=== PATIENT | female | born 1950 | race Asian ===

== ENCOUNTER 2024-10-15 18:51 | Inpatient (IN) | payer MEDICARE, MEDICAID, SELFPAY ==
[2024-10-15 18:54] VITALS: PULSE 128; RESP 18; O2SAT 94; BMI 24.0
[2024-10-15 18:57] VITALS: BP 134/77; PULSE 115; RESP 24; TEMP 37.7; O2SAT 93
--- NOTE | 2024-10-15 18:57 | EDNOTE_ITS ---
ED Weakness RME/HPI General Chief complaint: Flu Like Symptoms Stated complaint: WEAKNESS Time Seen by Provider: 10/15/24 19:17 Arrival date/time: 10/15/24 18:51 RME / HPI RME / HPI Narrative: This section includes all my notes and documentations, including HPI, PE, and ED course. Donnell Call MD HPI: 74yo female BIBA from home with several days of subjective fever, chills, aches, malaise, and fatigue. Just prior to arrival, EMS called due to diaphoresis and respiratory distress and possible decreased mental status. According to family present, no abdominal pain or vomiting. No other complaints. ROS: All negative except as documented in HPI. Physical Exam: General: Alert and oriented. Appearance of severe malaise noted. Hypoxia noted. Fever noted. Eyes: Conjunctivae and lids clear. PERRL. EOMI. ENT: No nasal congestion. Neck: Supple. No carotid bruit. No JVD. Heart: Sinus tachycardia noted. Lungs: No respiratory distress. Good air movement. No severe rhonchi, wheezing, rales. Abdomen: Soft and nontender. Normal bowel sounds. No distension. No rebound or guarding. Back: No CVA tenderness. Skin: Warm and clammy. Neuro: Alert. Cranial nerves II to XII grossly normal. No peripheral motor deficits. I reviewed EMS notes. I reviewed all diagnostic test results. My interpretation of the EKG is sinus tachycardia with nonspecific ST-T changes. My interpretation of the chest x-ray is NAD. My review of the bilateral lower extremity venous doppler US report is no DVT. My review of the CT head report is NAD. My review of the CT angio chest report is NAD. My review of the CT abdomen pelvis report is distended gallbladder. My review of the gallbladder US report is NAD. Blood tests remarkable for ESR 32, D-Dimer 2270, Creatinine 1.4, Glucose 362, CRP 15, Procalcitonin 16.17. UA remarkable for positive nitrites, positive leukocyte esterase, 4 RBCs, 46 WBCs, and rare bacteria. At this point, diagnoses include: Sepsis, UTI (urinary tract infection), OSVALDO (acute kidney injury), Hyperglycemia, CHF (congestive heart failure), Generalized weakness, Respiratory failure Treatment here included Oxygen, Toradol, Zofran, NS, Tylenol, Insulin, Rocephin, Protonix, and Pepcid. Some improvement noted. I discussed the case with our hospitalist. About the presentation and exam and diagnostics and treatments here. And need of further care in the hospital. Will accept the patient. Donnell Call MD Related Data Home Medications ?Medication ?Instructions ?Recorded ?Confirmed benzonatate 200 mg capsule 200 mg PO TID 03/05/23 1208/21 empagliflozin 25 mg tablet 25 mg PO DAILY 03/05/2308/21 (Jardiance) glipizide 10 mg tablet 10 mg PO ACBR 03/05/2303/05 sitagliptin phosphate 100 mg 100 mg PO QDAY 03/05/23 1 05/06/22 tablet (Januvia) verapamil 240 mg tablet,extended 240 mg PO QDAY 03/05/23 release Previous Rx's ?Medication ?Instructions ?Recorded aspirin 81 mg tablet,delayed 81 mg PO QDAY #60 tabs release atorvastatin 80 mg tablet 80 mg PO QDAY #60 tabs 03/07 clopidogrel 75 mg tablet 75 mg PO QDAY #60 tabs 03/07 Allergies Allergy/AdvReac Type Severity Reaction Status Date / Time No Known Allergies Allergy Verified 03/18/23 18:55 Review of Systems Review of Systems Systems Reviewed: All systems reviewed, normal except as documented Past Medical History Past Medical History CARDIAC: Positive Cardiac Disorders, Hypercholesterolemia, Congestive Heart Failure and Hypertension RESPIRATORY: Negative Chronic Obstructive Pulmonary Disease (COPD) GENITOURINARY: Positive Genitourinary Disorders; Negative Renal Disease ENDOCRINE: Positive Endocrine Disorders and Diabetes Mellitus Type 2; Negative Diabetes Mellitus Type 1 Social History SMOKING STATUS: Never smoker SUBSTANCE USE: does not use ED Exam Narrative Physical exam: As noted in HPI. Course Course Course Narrative: 1899: Sepsis alert initiated. Orders made at this time are congruent with ED Adult Sepsis Order List. Re-evaluation is to be completed. 1957: NS IVF started. 2214: Sepsis reassessment performed consisting of lab review, vitals, physical exam including auscultation of heart, lungs, and visual evaluation of capillary refills, mucosal membranes and extremities. Quality Measures Possible source: genitourinary Blood cultures ordered: yes Antibiotic ordered: Yes Pertinent labs: 10/15/24 19:40 Lactic Acid 1.9 mMol/L (0.4-2.0) Procalcitonin 16.17 H ng/ml (0.0-0.49) sepsis Orders Category Date Time Status Bedside COVID-19 Antigen Test NOW Care 10/15/24 18:58 Active Bedside Influenza A&B Antigen Test NOW Care 10/15/24 18:[address] Screening NOW Care 10/15/24 20:12 Active EKG (ED ONLY) *Do not use* NOW Care 10/15/24 18:58 Completed Miscellaneous Nursing Order NOW Care 10/15/24 18:58 Active Saline [Insert IV] NOW Care 10/15/24 18:[address] abdomen pelvis w con Stat Exams 10/15/24 20:[address] angio chest Stat Exams 10/15/24 20:[address] head/brain wo con Stat Exams 10/15/24 18:58 Completed EKG (ED Only) Stat Exams 10/15/24 18:58 Draft US gall bladder Stat Exams 10/16/24 00:05 Ordered US venous doppler LE BI Stat Exams 10/15/24 20:19 Completed XR chest 1V portable Stat Exams 10/15/24 18:59 Completed ABG [Arterial Blood Gas] Stat Lab 10/15/24 19:57 Completed Amylase Stat Lab 10/15/24 19:40 Completed BNP [B-Type Natriuretic Peptide] Stat Lab 10/15/24 19:40 Completed Beta Hydroxybutyrate Stat Lab 10/15/24 19:40 Completed Bilirubin,Direct Stat Lab 10/15/24 19:40 Completed Blood Culture (Lab) Stat Lab 10/15/24 19:42 Received CBC Stat Lab 10/15/24 19:40 Completed CMP [Comprehensive Metabolic Panel] Stat Lab 10/15/24 19:40 Completed CRP [C-Reactive Protein] Stat Lab 10/15/24 19:40 Completed D-Dimer Stat Lab 10/15/24 19:40 Completed ESR [Sed Rate (ESR)] Stat Lab 10/15/24 19:40 Completed Free T4 (Free Thyroxine) Stat Lab 10/15/24 19:40 Completed Hemoglobin A1C [Glycohemoglobin w (eAG)] Stat Lab 10/15/24 19:40 Completed Lactate (Lactic Acid) Stat Lab 10/15/24 19:40 Completed Lipase Stat Lab 10/15/24 19:40 Completed Magnesium Stat Lab 10/15/24 19:40 Completed PT [Prothrombin Time with INR] Stat Lab 10/15/24 19:40 Completed PTT [Partial Thromboplastin Time] Stat Lab 10/15/24 19:40 Completed Procalcitonin Stat Lab 10/15/24 19:40 Completed TSH [Thyroid Stimulating Hormone] Stat Lab 10/15/24 19:40 Completed Troponin I Stat Lab 10/15/24 19:40 Completed UA, C/S IF [Urinalysis, C/S if Indicated] Stat Lab 10/15/24 19:48 Completed Urine Culture Stat Lab 10/15/24 19:48 Received Acetaminophen Ivpb [Ofirmev Inj] Med 10/15/24 19:00 Discontinued 1,000 mg in 100 ml IV X1 Acetaminophen Tab [Tylenol Tab] Med 10/15/24 20:52 Discontinued 650 mg PO X1 ONE Famotidine Inj [Pepcid Inj] Med 10/15/24 22:53 Discontinued 20 mg IVP X1 ONE Insulin Regular Med 10/15/24 20:28 Discontinued 5 unit IV X1 ONE Ketorolac Inj [Toradol Inj] Med 10/15/24 19:00 Discontinued 12 mg IVP X1 ONE Ondansetron Inj [Zofran Inj] Med 10/15/24 18:59 Discontinued 4 mg IVP X1 ONE Pantoprazole Inj [Protonix Inj] Med 10/15/24 22:53 Discontinued 40 mg IVP X1 ONE Sodium Chloride 0.9% 1000 ml [Ns] 1,000 ml Med 10/15/24 18:59 Discontinued IV 999 mls/hr Sodium Chloride 0.9% 1000 ml [Ns] 1,000 ml Med 10/15/24 19:00 Discontinued IV 999 mls/hr cefTRIAXone/D5w 1gm IV premix [Rocephin/D5w 1gm IV Med 10/15/24 19:00 Discontinued premix] 1 gm in 50 ml IV X1 Vital Signs Vital signs: Vital Signs Temperature 99.8 F 10/15/24 18:57 Pulse Rate 115 H 10/15/24 18:57 Respiratory Rate 24 H 10/15/24 18:57 Blood Pressure 134/77 H 10/15/24 18:57 Pulse Oximetry (%) 93 L 10/15/24 18:57 Oxygen Delivery Method Room Air 10/15/24 18:57 Weakness MDM Narrative MDM Narrative:: 74yo female BIBA from home with several days of subjective fever, chills, aches, malaise, and fatigue. Just prior to arrival, EMS called due to diaphoresis and respiratory distress and possible decreased mental status. According to family present, no abdominal pain or vomiting. No other complaints. Patient data External records reviewed:: [facility] previous records (Per chart review, patient was admitted here on 03/05/23 for TIA.) and EMS form Clinical information provided by:: patient and EMS Social determinants that could affect healthcare access:: none Patient has the following chronic illnesses:: CVA, DM, HTN How is presenting disease/condition affected by chronic disease/condition?: uneffected by Evaluation data The following diagnostics were reviewed and interpreted by me:: lab results, radiology exam(s) and EKG tracing(s) (My interpretation of the EKG is: Sinus rhythm (100 bpm) with nonspecific ST-T changes. Donnell Call MD) Lab and/or radiology exams considered but not ordered:: none Interpretation Summary: I reviewed all diagnostic test results. My interpretation of the EKG is sinus tachycardia with nonspecific ST-T changes. My interpretation of the chest x-ray is NAD. My review of the bilateral lower extremity venous doppler US report is no DVT. My review of the CT head report is NAD. My review of the CT angio chest report is NAD. My review of the CT abdomen pelvis report is distended gallbladder. My review of the gallbladder US report is NAD. Blood tests remarkable for ESR 32, D-Dimer 2270, Creatinine 1.4, Glucose 362, CRP 15, Procalcitonin 16.17. UA remarkable for positive nitrites, positive leukocyte esterase, 4 RBCs, 46 WBCs, and rare bacteria. Medications / Prescriptions Medications or Prescriptions considered but not ordered:: none Medication administrations:: Medication Administration History Acetaminophen (Acetaminophen 325 Mg Tablet) 650 mg PO Q6H PRN PRN Reason: PAIN SCALE 1-3 (mild Stop: 11/15/24 01:26 Dextrose (Dextrose 50%-Water Inj 50 Ml Syringe) 25 ml IV Q15MIN PRN PRN Reason: BG 50-70 responsive npo pt Stop: 11/15/24 01:31 Dextrose (Dextrose 50%-Water Inj 50 Ml Syringe) 50 ml IV Q15MIN PRN PRN Reason: BG <50 OR BG <70 & pt unresponsive Stop: 11/15/24 01:31 Glucagon (Glucagon Inj 1 Mg Vial) 1 mg IM Q15MIN PRN PRN Reason: BG <70, and no IV access Heparin Sodium (Porcine) (Heparin Sod Inj 5000 Unit/Ml Vial) 5,000 unit SC Q12HR [facility] Stop: 10/30/24 08:59 Ceftriaxone Sodium/Dextrose (Rocephin/D5w 1gm Iv Premix) 1 gm in 50 mls @ 100 mls/hr IV QDAY [facility] Stop: 10/23/24 08:59 Insulin Human Lispro (Insulin Lispro (Admelog) 1 Unit/0.01 Ml Unit) 0 unit SC ACHS [facility]; Protocol Stop: 11/15/24 07:29 Ondansetron HCl (Ondansetron Inj 2 Mg/Ml Inj 2 Ml) 4 mg IVP Q6H PRN; Protocol PRN Reason: NAUSEA OR VOMITING Stop: 11/15/24 01:26 Pantoprazole Sodium (Pantoprazole Inj 40 Mg Vial) 40 mg IVP QDAY [facility] Stop: 11/15/24 08:59 Sennosides (Senna Tablet) 1 tab PO QDAY PRN; Protocol PRN Reason: constipation Stop: 11/15/24 01:26 Discontinued Medications Acetaminophen (Acetaminophen 325 Mg Tablet) 650 mg PO X1 ONE Stop: 10/15/24 20:53 Last Admin: 10/15/24 21:05 Dose: 650 mg Documented By: SM Famotidine (Famotidine Inj 10 Mg/Ml Vial 2 Ml) 20 mg IVP X1 ONE Stop: 10/15/24 22:54 Last Admin: 10/16/24 00:14 Dose: 20 mg Documented By: CG Sodium Chloride (Ns) 1,000 mls @ 999 mls/hr IV .Q1H1M ONE Stop: 10/15/24 19:59 Last Admin: 10/15/24 19:58 Dose: 999 mls/hr Documented By: EF Ceftriaxone Sodium/Dextrose (Rocephin/D5w 1gm Iv Premix) 1 gm in 50 mls @ 100 mls/hr IV X1 ONE Stop: 10/15/24 19:29 Last Infusion: 10/15/24 21:01 Dose: Infused Documented By: Admin: 10/15/24 19:58 Dose: 100 mls/hr Documented By: EF Acetaminophen (Ofirmev Inj) 1,000 mg in 100 mls @ 250 mls/hr IV X1 ONE Stop: 10/15/24 19:23 Last Admin: 10/15/24 19:50 Dose: Not Given Documented By: KYRA Non-Admin Reason: Patient Refused Sodium Chloride (Ns) 1,000 mls @ 999 mls/hr IV .Q1H1M ONE Stop: 10/15/24 20:00 Last Admin: 10/15/24 20:58 Dose: 999 mls/hr Documented By: SM Insulin Human Regular (Insulin Hum Regular 1 Unit/0.01 Ml (Per Unit)) 5 unit IV X1 ONE Stop: 10/15/24 20:29 Last Admin: 10/15/24 21:11 Dose: 5 unit Documented By: KYRA Co-signed By: SE Ketorolac Tromethamine (Ketorolac Inj 30 Mg/Ml Vial) 12 mg IVP X1 ONE Stop: 10/15/24 19:01 Last Admin: 10/15/24 19:50 Dose: Not Given Documented By: KYRA Non-Admin Reason: Patient Refused Ondansetron HCl (Ondansetron Inj 2 Mg/Ml Inj 2 Ml) 4 mg IVP X1 ONE; Protocol Stop: 10/15/24 19:00 Last Admin: 10/15/24 19:57 Dose: 4 mg Documented By: EF Pantoprazole Sodium (Pantoprazole Inj 40 Mg Vial) 40 mg IVP X1 ONE Stop: 10/15/24 22:54 Last Admin: 10/16/24 00:13 Dose: 40 mg Documented By: CG Oxygen, Toradol, Zofran, NS, Tylenol, Insulin, Rocephin, Protonix, Pepcid Consultations Consultation(s) initiated? (list below): Yes Consultation #1 (Physician, Specialty, Details): I discussed the case with our hospitalist. About the presentation and exam and diagnostics and treatments here. And need of further care in the hospital. Will accept the patient. Diagnosis Weakness Differential Diagnosis: acute myocardial infarction, anemia, hypoglycemia, hypothyroidism, rhabdomyolysis, sepsis, dehydration and other (UTI, pneumonia, COVID, influenza, CVA, electrolyte abnormalities) Most likely diagnosis given after review of the tests above:: Sepsis, UTI (urinary tract infection), OSVALDO (acute kidney injury), Hyperglycemia, CHF (congestive heart failure), Generalized weakness, Respiratory failure Admission Indicated Admission indicated?: indicated Explain why admission is indicated or not indicated:: Sepsis, UTI (urinary tract infection), OSVALDO (acute kidney injury), Hyperglycemia, CHF (congestive heart failure), Generalized weakness, Respiratory failure Admission Request Was there a request for admission?: Yes Admission Attestation Admission request attestation: Discussed case with Hospitalist service regarding admission. Discussed patients ED course, exam findings, labs, and radiology results. The Hospitalist [agrees] to accept the patient for admission. Disposition Plan Disposition Plan: Admit Critical Care Time Critical Care Time Critical Care Time: Yes Total Critical Care Time (min.): 40 Attestation: Due to a high probability of clinically significant, life threatening deterioration, the patient required my highest level of preparedness to intervene emergently and I personally spent this critical care time directly and personally managing the patient. This critical care time included obtaining a history; examining the patient; ordering and review of studies; arranging urgent treatment with development of a management plan; evaluation of patient's response to treatment; frequent reassessment; and discussions with family and other providers. It was exclusive of separately billable procedures and treating other patients and teaching time. Donnell Call MD Discharge Plan Plan Patient Disposition: Admit Acute Care w/in Hospital Problem List Clinical Impression: Sepsis, UTI (urinary tract infection), OSVALDO (acute kidney injury), Hyperglycemia, CHF (congestive heart failure), Generalized weakness, Acute respiratory failure with hypoxia
--- NOTE | 2024-10-15 18:58 | XR_ITS ---
Examination: CT brain head without contrast. 2-D sagittal coronal reconstructions Date and time of exam:October 15, 20242013 hours INDICATIONS: Weakness altered mental status today CTDI: vol (mGy):50.7 DLP: (mGycm):969 Technique: Multiple CT axial sections of the brain have been obtained, 5 mm slice thickness. Contrast has not been administered. 2-D sagittal, coronal reconstructions have been obtained Low dose protocols were performed. One or more of the following dose reduction techniques were used; automated exposure control, adjustment of the mA and/or KV according to patient size, use of iterative reconstruction technique. Findings: No significant ventricular enlargement. Intra-axial or extra-axial hemorrhage density is not seen. No mass effect or midline shift Basal cisterns are not remarkable. Fourth ventricle is midline. Cranial vault intact. 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
--- NOTE | 2024-10-15 18:58 | EKG_ITS ---
[facility] Test Date: 2024-10-15 Pat Name: THANH SHARPE Department: Room: - Gender: Female State Assessed Properties Director: : 1950 Requested By: Donnell Andrade Order Number: [id number] Reading MD: Donnell Andrade Measurements Intervals Blanding Rate: 100 P: 13 AL: 147 QRS: -9 QRSD: 131 T: 17 QT: 364 QTc: 471 Interpretive Statements SINUS TACHYCARDIA RIGHT BUNDLE BRANCH BLOCK [120+ ms QRS DURATION, UPRIGHT V1, 40+ ms S IN I/aVL/V4/V5/V6] Compared to ECG 03/05/2023 18:28:55 No significant changes /store/S0/[id number]/ecg/[id number].pdf
--- NOTE | 2024-10-15 18:59 | XR_ITS ---
Examination: AP chest single view TECHNIQUE: AP portable upright chest single view Date and time: October 15, 2024 at 1950 hours Comparison March 18, 2023 INDICATIONS: Shortness of breath weakness today FINDINGS: Normal heart size Lungs are clear. The osseous structures are intact IMPRESSION: No active disease
[2024-10-15 19:46] LABS: Lactate (Lactic Acid) 1.9 mMol/L (0.4-2.0)
[2024-10-15 19:49] LABS: Basophils # (Auto) 0.0 Thou/mm3 (0.0-0.2); Basophils % (Auto) 0 % (0-2.5); Eosinophils # (Auto) 0.1 Thou/mm3 (0.0-0.5); Eosinophils % (Auto) 1 % (0-10); Hematocrit 43.0 % (36.0-46.0); Hemoglobin 15.3 g/dL (12.0-16.0); Immature Granulocytes Auto 0.03 Thou/mm3 (0.00-0.00); Lymphocytes # (Auto) 0.3 Thou/mm3 (1.0-4.8); Lymphocytes % (Auto) 4 % (10-50); Mean Corpuscular HGB Conc 35.6 g/dl (31.0-37.0); Mean Corpuscular Hemoglobin 27.8 pg (25.0-35.0); Mean Corpuscular Volume 78 fL (80-100); Monocytes # (Auto) 0.5 Thou/mm3 (0.0-0.8); Monocytes % (Auto) 7 % (0-12); Neutrophils # (Auto) 6.7 Thou/mm3 (1.8-7.7); Neutrophils % (Auto) 87 % (37-80); Nucleated Red Blood Cell # 0.00 Thou/mm3 (0.00-0.00); Nucleated Red Blood Cell % 0 /100 WBC (0); Platelet Count 119 Thou/mm3 (140-440); RDW Standard Deviation 35.9 fL (36.4-46.3); Red Blood Count 5.50 Miln/mm3 (4.00-5.20); White Blood Count 7.6 Thou/mm3 (3.6-11.0)
[2024-10-15 19:51] LABS: Beta Hydroxybutyrate 0.2 mmol/L (<0.6)
[2024-10-15 19:57] LABS: Collection Type, Urine Clean Catch
[2024-10-15] MEDS: ONDANSETRON INJ 2 MG/ML INJ 2 ML 4 MG IVP (19:57)
[2024-10-15] MEDS: cefTRIAXone/D5w 1gm IV premix 1 GM/50 ML BAG IV (19:58)
[2024-10-15] MEDS: SODIUM CHLORIDE 0.9% 1000 ML 1,000 ML 999 ML IV ×2 (19:58→20:58)
[2024-10-15 20:00] LABS: Sed Rate (ESR) 32 mm/hr (0-30)
[2024-10-15 20:05] LABS: Base Excess 2 (-3-3); HCO3 25 mEq/L (20-26); Inspired Oxygen, FIO2 21 %; O2 Saturation 94 % (91-98); PCO2 35 mmHg (32.0-48.0); PO2 64 mmHg (83-108); pH, Arterial 7.47 (7.35-7.45)
[2024-10-15 20:05] LABS: D-Dimer 2770 ng/mL (<600)
[2024-10-15 20:06] LABS: Puncture Site Arterial Line
[2024-10-15 20:07] LABS: Allen Test Performed/OK
[2024-10-15 20:07] LABS: INR 1.1 (0.9-1.3); Partial Thromboplastin Time 32.4 Seconds (22.0-36.0); Prothrombin Time 11.9 Seconds (9.0-12.2)
[2024-10-15 20:11] LABS: B-Type Natriuretic Peptide 99 pg/mL (0-100)
--- NOTE | 2024-10-15 20:12 | XR_ITS ---
Examination: CT abdomen with intravenous contrast CT pelvis with intravenous contrast 2-D coronal reconstructions 2-D sagittal reconstructions Date and time of exam:October 15, 2024 2210 hours INDICATIONS: Abdominal pain today. CTDI: vol (mGy) 8.26 DLP: (mGycm) 493 Technique: Multiple axial sections of the abdomen and pelvis have been obtained. 64 slice high-resolution scanner used. 3 mm axial sections have been obtained, post intravenous injection 60 cc Isovue 300 2-D sagittal, coronal reconstructions obtained. Low dose protocols were performed. One or more of the following dose reduction techniques were used; automated exposure control, adjustment of the mA and/or KV according to patient size, use of iterative reconstruction technique. Findings: Prominent vascular congestion Fatty infiltration throughout the liver, no focal liver and splenic lesions Distended gallbladder no gallstones Edema in the stomach and duodenum, axial images 70 No pancreatic or adrenal mass Moderate renal parenchymal scar formation Abdominal aortic calcification no aneurysmal dilatation No bowel obstruction Normal appendix No diverticulitis Distended urinary bladder Absent uterus No pelvic mass Significant osteopenia IMPRESSION: Distended gallbladder, consider gallbladder sonography follow-up Gastritis duodenitis pattern Moderate renal parenchymal scar formation Normal appendix No bowel obstruction Distended urinary bladder
--- NOTE | 2024-10-15 20:12 | XR_ITS ---
Examination: CTA chest with intravenous contrast 2-D reconstructions 3-D reconstructions, vascular Date and time of exam: October 15, 2024 2220 hours INDICATIONS: Shortness of breath chest pain today CTDI: vol (mGy) 25 DLP: (mGycm) 477 Technique: Multiple axial sections of the thorax have been obtained. 3 mm slice thickness, from below the hemidiaphragms to above the apices of the lungs. Mediastinal and lung density settings have been obtained. 2-D sagittal and coronal reconstructions. 3-D angiographic renderings, 3-D volume renderings, 3D post processing, vascular maximum intensity projections obtained. Contrast administered is 60 cc Isovue 370 intravenous. Low dose protocols were performed. One or more of the following dose reduction techniques were used; automated exposure control, adjustment of the mA and/or KV according to patient size, use of iterative reconstruction technique. Findings: Enlarged thyroid lobes with multiple thyroid nodules No thoracic aortic aneurysmal dilatation Enlarged main pulmonary artery segment 32 mm No pulmonary artery emboli Mild enlargement cardiac contour Significant vascular congestion Minimal pleural fluid Fatty infiltration throughout the liver No gallstones Spleen not enlarged No pancreatic or adrenal mass IMPRESSION: Pulmonary artery hypertension pattern. Negative for pulmonary artery emboli Mild heart failure Thyromegaly with multiple thyroid nodules, recommend elective thyroid sonography follow-up
[2024-10-15 20:17] LABS: Bacteria,Urine Rare; Bilirubin,Urine Negative (Negative); Blood,Urine Negative (Negative); Clarity,Urine Clear (Clear/Hazy); Color,Urine Lt-Yellow (Lt Yel-Yel); Glucose, Urine 4+ (Negative); Ketones,Urine Trace (Negative); Leukocyte Esterase,Urine Positive (Negative); Nitrite,Urine Positive (Negative); PH,Urine 7.0 (5.0-7.0); Protein,Urine Negative (Neg - Trace); RBC,Urine 4 /hpf (0-3); Specific Gravity,Urine 1.033 (1.001-1.035); Squamous Epithelial Cell,Urine 4 /hpf (0-5); Urobilinogen,Urine Negative mg/dL (0.0-1.0); WBC,Urine 46 /hpf (0-5)
[2024-10-15 20:18] LABS: Culture Indicated,Urine Yes
[2024-10-15 20:19] LABS: Alanine Aminotransferase 60 U/L (10-49); Albumin, Serum 4.1 gm/dL (3.4-4.8); Albumin/Globulin Ratio 1.5 (1.2-2.2); Alkaline Phosphatase 118 U/L (46-116); Amylase 69 U/L (30-118); Anion Gap 11 (7-16); Aspartate Amino Transferase 41 U/L (0-34); BUN/Creatinine Ratio 17 Ratio (12-20); Bilirubin,Direct 0.3 mg/dL (0.0-0.3); Bilirubin,Total 1.0 mg/dL (0.3-1.2); Blood Urea Nitrogen 24 mg/dL (9-23); Calcium 8.6 mg/dL (8.3-10.6); Calcium (Corrected) 8.6 mg/dL (8.5-10.1); Carbon Dioxide 23.0 mMol/L (20.0-31.0); Chloride 104 mMol/L (98-107); Creatinine (Component) 1.4 mg/dL (0.6-1.3); Estimated Creatinine Clearance 24.9 mL/min (>60); Free T4 (Free Thyroxine) 1.32 ng/dL (0.89-1.76); Globulin 2.7 gm/dL (2.3-3.5); Glucose 362 mg/dL (74-106); Lipase 37 U/L (12-53); Magnesium 1.8 mg/dL (1.6-2.6); Osmolality,Calculated 294 (275-295); Potassium 4.6 mMol/L (3.4-5.1); Procalcitonin 16.17 ng/ml (0.0-0.49); Sodium 138 mMol/L (136-145); Thyroid Stimulating Hormone 0.52 uIU/mL (0.55-4.78); Total Protein 6.8 gm/dL (5.7-8.2); Troponin I < 0.020 ng/mL (0.0-0.045); eGFR 39 See Note
--- NOTE | 2024-10-15 20:19 | XR_ITS ---
Examination: Venous duplex lower extremity sonogram, bilateral. Date and time of exam: October 15, 2024 2121 hours INDICATIONS: Leg edema today with elevated d-dimer Technique: Multiple sonographic images of the deep venous system have been obtained. B-mode/2-D grayscale imaging of vascular structures and Doppler spectral analysis (waveforms) and color performed Both legs are examined. Findings: Deep venous systems do not demonstrate abnormal echogenicity. All visualized deep veins exhibit compressibility. All visualized deep veins exhibit augmentation. Impression: Negative for deep vein thrombosis
[2024-10-15 20:22] LABS: Glucose Estimated Average 229 mg/dL (80-131); Hemoglobin A1C 9.6 % Hgb (4.8-6.0)
[2024-10-15 20:23] LABS: C-Reactive Protein 15.0 mg/dL (0.0-0.9)
[2024-10-15 20:52] VITALS: TEMP 38.6
[2024-10-15 21:05] VITALS: TEMP 38.6
[2024-10-15] MEDS: ACETAMINOPHEN 325 MG TABLET 650 MG PO (21:05)
[2024-10-15] MEDS: INSULIN HUM REGULAR 1 UNIT/0.01 ML (PER UNIT) 5 UNIT IV (21:11)
[2024-10-16] VITALS (12 sets, daily range): BP systolic 115–141; BP diastolic 61–78; PULSE 75–95; RESP 16–19; TEMP 36.1–37.1; O2SAT 93–99; BMI 24.0
--- NOTE | 2024-10-16 00:05 | XR_ITS ---
Examination: Abdomen sonogram, Limited Date and time of exam: October 16, 2024 0037 hours INDICATIONS: Abdominal pain and weakness several days Technique: Real-time byrne scale transabdominal sonographic images of the upper abdomen obtained. Findings: Negative for gallstones Normal gallbladder wall Common bile duct 0.53 cm no stones Pancreas obscured by bowel gas Liver 14.3 cm no liver lesions Normal hepatopedal portal venous flow Patent IVC IMPRESSION: Negative for cholelithiasis, negative for cholecystitis
[2024-10-16] MEDS: FAMOTIDINE INJ 10 MG/ML VIAL 2 ML 20 MG IVP (00:14)
--- NOTE | 2024-10-16 01:30 | ECHO_ITS ---
Transthoracic Echo Report Ht (in): 58 Wt (lb): 115 Exam Location: Echo Lab Status: Emergency Sharemilker: Archana Lucero Indications: Procedure Performed: BP: 141 / 78 HR: 95 Technical Quality: Technically difficult study MEASUREMENTS (Male / Female) Normal Values 2D ECHO LV Diastolic Diameter PLAX 3.5 cm 4.2 - 5.9 / 3.9 - 5.3 cm LV Systolic Diameter PLAX 2.2 cm IVS Diastolic Thickness 0.9 cm 0.6 - 1.0 / 0.6 - 0.9 cm LVPW Diastolic Thickness 1.1 cm 0.6 - 1.0 / 0.6 - 0.9 cm LV Relative Wall Thickness 0.6 LVOT Diameter 1.4 cm Aortic Root Diameter 2.3 cm LA Systolic Diameter LX 3.5 cm 3.0 - 4.0 / 2.7 - 3.8 cm LA Volume Index 26.3 cm?/m? 16 - 28 cm?/m? Ascending Aorta Diameter 3.1 cm M-MODE Aortic Root Diameter MM 2.5 cm LA Systolic Diameter MM 3.5 cm LA Ao Ratio MM 1.4 AV Cusp Separation MM 1.7 cm DOPPLER AV Peak Velocity 126.0 cm/s AV Peak Gradient 6.4 mmHg AV Mean Gradient 3.0 mmHg AV Velocity Time Integral 29.3 cm AI Peak Velocity 263.0 cm/s AI Peak Gradient 27.7 mmHg AI Pressure Half Time 875.0 ms LVOT Peak Velocity 114.0 cm/s LVOT Peak Gradient 5.2 mmHg LVOT Velocity Time Integral 28.0 cm LVOT Cardiac Index 2780.7 cm?/min?m? AV Area Cont Eq vti 1.5 cm? AV Area Cont Eq pk 1.4 cm? MV Area PHT 3.9 cm? MR Peak Velocity 276.5 cm/s MR Peak Gradient 30.6 mmHg Mitral E Point Velocity 109.0 cm/s Mitral A Point Velocity 114.0 cm/s Mitral E to A Ratio 1.0 LV E' Lateral Velocity 5.7 cm/s Mitral E to LV E' Lateral Ratio 19.3 LV E' Septal Velocity 4.3 cm/s Mitral E to LV E' Septal Ratio 25.1 TR Peak Velocity 242.0 cm/s TR Peak Gradient 23.4 mmHg PV Peak Velocity 103.0 cm/s PV Peak Gradient 4.2 mmHg FINDINGS Left Ventricle Normal left ventricular size, wall thickness, systolic function with no obvious regional wall motion abnormalities. Normal left ventricular diastolic filling pattern for age. The ejection fraction is visually estimated at 65 %. Right Ventricle The right ventricle is normal in size and systolic function. Left Atrium The left atrium is normal by two-dimensional, color flow and Doppler imaging with no structural abnormalities, no thrombus formation present. Right Atrium The right atrium is normal by two-dimensional imaging, color flow and Doppler imaging with no structural abnormalities, no thrombus formation present. Atrial Septum The interatrial septum appears normal with no evidence of a shunt. Aorta The aorta is normal by two-dimensional, color flow and Doppler interrogation. Mitral Valve The mitral valve is normal by two-dimensional, color flow and Doppler interrogation. Trace mitral regurgitation. Aortic Valve The aortic valve is trileaflet and normal by two-dimensional, color flow and Doppler interrogation. Mild aortic valve regurgitation. Tricuspid Valve The tricuspid valve is normal by two-dimensional, color flow and Doppler interrogation. There is mild tricuspid valve regurgitation. Pulmonic Valve Trivial pulmonic valve regurgitation. Vessels The pulmonary artery appears normal. The inferior vena cava pulmonary and hepatic veins appear normal. Pericardium The pericardium is normal by two-dimensional imaging. There is no significant pericardial effusion. CONCLUSIONS Indication: Risk factors, AHRF imaging findings PAH/mild HF Normal left ventricular size and function. Approximate ejection fraction is 65%. The RV is normal in size and systolic function. No evidence of PAH Mild mitral and trace tricuspid regurgitation Mild aortic valve regurgitation and pulmonic valve mild regurgitation insignificant Valerie Alexis (Electronically Signed) Final Date: 17 October 2024 18:32
--- NOTE | 2024-10-16 01:37 | PD.RESHP ---
Documentation for date of: 10/16/24 HPI History of Present Illness Chief complaint: Shortness of breath History of present illness: 74-year-old female with past medical history of hypertension, type 2 diabetes, TIA on Plavix, NAFLD, chronic UTI presented to the ED on 10/16 with episode of shortness of breath and fevers at home. Patient's [id number]-[id number] is bedside and provided some history. Apparently patient currently lives with her and 2 sons at home and has been experiencing increased level of shortness of breath and dyspnea on exertion. Patient has trouble ambulating at home currently and is largely bedbound since symptoms started several days ago. Patient also has a longstanding history of chronic UTIs and has been given oral antibiotics several times throughout the year. Patient apparently is reporting some dysuria but denies having any flank pain, hematuria. Patient denies having any chest pain, palpitations, orthopnea, paroxysmal nocturnal dyspnea or lower extremity edema. Medical history: As stated above Surgical history: Not reported Allergies: NKDA Medications: Pending med rec Family history: Noncontributory Social history: Patient lives in [place] with and 2 sons, denies any alcohol, tobacco or illicit drug use ROS: All 12 systems assessed and the patient denies unless otherwise stated in HPI In the ED, patient presented mildly hypertensive 134/77, tachycardic with heart rate of 115, respiratory rate of 24 and febrile with a Tmax of 101.4 ?F and saturating 93 on room air initially but not requiring oxygen mask. Pertinent lab findings included fingerstick blood glucose of 255, WBC of 7.6, hemoglobin of 15.3, platelet count 119, D-dimer of 2770, ABG showed pH of 7.47, PCO2 of 35, PO2 of 64, bicarb of 25, BUN of 24, creatinine 1.4, EGFR of 39, A1c of 9.6, lactic acid 1.9, magnesium 1.8, AST of 41, ALT of 60, T. bili of 1.0, troponin of less than 0.020, BNP of 99, TSH of 0.52, free T41.32 And Pro-Brian of 16.17. Head CT was negative for any acute findings, chest x-ray showed no active disease, EKG showed sinus tachycardia with right bundle branch block, CT abdomen pelvis showed distended gallbladder, gastritis/duodenitis, moderate renal parenchymal scar formation, distended urinary bladder, CTA of the chest showed no PE but there was signs of pulmonary arterial hypertension and mild heart failure along with thyromegaly with multiple thyroid nodules, venous Doppler study was negative for DVT and gallbladder ultrasound is pending Patient will be admitted for sepsis secondary to UTI and will be treated with IV antibiotics with workup for acute hypoxic respiratory failure likely secondary to PAH versus mild heart failure. Exam Vital Signs Temp Pulse Resp BP Pulse Ox O2 Del Method 98.5 F 88 19 141/78 H 96 Room Air 10/16/24 00:14 10/16/24 00:12 10/16/24 00:12 10/16/24 00:12 10/16/24 00:12 10/15/24 18:57 Narrative Exam Physical Exam: GENERAL: Awake, answering questions appropriately monitor, frail-appearing, appears stated age HEENT: NC/AT. Moist mucosa. PERRLA/EOMI. CARDIO: Tachycardia, no obvious murmurs, no JVD. PULM: No coughing but visibly short of breath on oxygen mask. Lungs clear to auscultation bilaterally with no crackles/wheeze/rhonchi/rales GI: Abdomen soft, NT/ND, +BS. SKIN/MSK/EXT: No wounds/discoloration/rashes/edema/amputations. +Pedal pulses present B/L. NEURO: Oriented x3, Moves extremities x4, no focal neurologic deficits noted Results: Labs 10/15/24 19:40 10/15/24 19:40 Labs: Short CBC 10/15/24 Range/Units 19:40 WBC 7.6 (3.6-11.0) Thou/mm3 Hgb 15.3 (12.0-16.0) g/dL Hct 43.0 (36.0-46.0) % Plt Count 119 L (140-440) Thou/mm3 BMP 10/15/24 19:40 Sodium 138 Potassium 4.6 Chloride 104 Carbon Dioxide 23.0 BUN 24 H Creatinine 1.4 H Glucose 362 H Calcium 8.6 Cardiac Enzymes 10/15/24 Range/Units 19:40 Troponin I < 0.020 (0.0-0.045) ng/mL Liver Function 10/15/24 Range/Units 19:40 Total Bilirubin 1.0 (0.3-1.2) mg/dL Direct Bilirubin 0.3 (0.0-0.3) mg/dL AST 41 H (0-34) U/L ALT 60 H (10-49) U/L Alkaline Phosphatase 118 H (46-116) U/L Albumin 4.1 (3.4-4.8) gm/dL Urine 10/15/24 Range/Units 19:48 Urine Color Lt-Yellow (Lt Yel-Yel) Urine Clarity Clear (Clear/Hazy) Urine pH 7.0 (5.0-7.0) Ur Specific [place] 1.033 (1.001-1.035) Urine Protein Negative (Neg - Trace) Urine Glucose (UA) 4+ A (Negative) ABG Interpretation ABG results: 10/15/24 19:57 ABG pH 7.47 H ABG pCO2 35 ABG pO2 64 L ABG HCO3 25 ABG O2 Saturation 94 ABG Base Excess 2 Quality Measures Quality Measures sepsis Current suspected stage: sepsis Possible source: genitourinary Blood cultures ordered: yes Antibiotic ordered: Yes Advance care planning discussed with:: patient ([id number]) and other Medications Home Medications and Allergies Home Medications ?Medication ?Instructions ?Recorded ?Confirmed ?Type benzonatate 200 mg capsule 200 mg PO TID 03/05/23 03/05/23 History empagliflozin 25 mg tablet 25 mg PO DAILY 03/05/23 03/05/23 History (Jardiance) glipizide 10 mg tablet 10 mg PO ACBR 03/05/23 03/05/23 History sitagliptin phosphate 100 mg 100 mg PO QDAY 03/05/23 03/05/23 History tablet (Januvia) verapamil 240 mg tablet,extended 240 mg PO QDAY 03/05/23 03/05/23 History release Allergies Allergy/AdvReac Type Severity Reaction Status Date / Time No Known Allergies Allergy Verified 03/18/23 18:55 Visit Medications Acetaminophen (Acetaminophen 325 Mg Tablet) 650 mg PO Q6H PRN PRN Reason: PAIN SCALE 1-3 (mild Stop: 11/15/24 01:26 Dextrose (Dextrose 50%-Water Inj 50 Ml Syringe) 25 ml IV Q15MIN PRN PRN Reason: BG 50-70 responsive npo pt Stop: 11/15/24 01:31 Dextrose (Dextrose 50%-Water Inj 50 Ml Syringe) 50 ml IV Q15MIN PRN PRN Reason: BG <50 OR BG <70 & pt unresponsive Stop: 11/15/24 01:31 Glucagon (Glucagon Inj 1 Mg Vial) 1 mg IM Q15MIN PRN PRN Reason: BG <70, and no IV access Heparin Sodium (Porcine) (Heparin Sod Inj 5000 Unit/Ml Vial) 5,000 unit SC Q12HR LAUREANO Stop: 10/30/24 08:59 Ceftriaxone Sodium/Dextrose (Rocephin/D5w 1gm Iv Premix) 1 gm in 50 mls @ 100 mls/hr IV QDAY LAUREANO Stop: 10/23/24 08:59 Insulin Human Lispro (Insulin Lispro (Admelog) 1 Unit/0.01 Ml Unit) 0 unit SC ACHS LAUREANO; Protocol Stop: 11/15/24 07:29 Ondansetron HCl (Ondansetron Inj 2 Mg/Ml Inj 2 Ml) 4 mg IVP Q6H PRN; Protocol PRN Reason: NAUSEA OR VOMITING Stop: 11/15/24 01:26 Pantoprazole Sodium (Pantoprazole Inj 40 Mg Vial) 40 mg IVP QDAY LAUREANO Stop: 11/15/24 08:59 Sennosides (Senna Tablet) 1 tab PO QDAY PRN; Protocol PRN Reason: constipation Stop: 11/15/24 01:26 Discontinued Medications Acetaminophen (Acetaminophen 325 Mg Tablet) 650 mg PO X1 ONE Stop: 10/15/24 20:53 Last Admin: 10/15/24 21:05 Dose: 650 mg Famotidine (Famotidine Inj 10 Mg/Ml Vial 2 Ml) 20 mg IVP X1 ONE Stop: 10/15/24 22:54 Last Admin: 10/16/24 00:14 Dose: 20 mg Sodium Chloride (Ns) 1,000 mls @ 999 mls/hr IV .Q1H1M ONE Stop: 10/15/24 19:59 Last Admin: 10/15/24 19:58 Dose: 999 mls/hr Ceftriaxone Sodium/Dextrose (Rocephin/D5w 1gm Iv Premix) 1 gm in 50 mls @ 100 mls/hr IV X1 ONE Stop: 10/15/24 19:29 Last Infusion: 10/15/24 21:01 Dose: Infused Acetaminophen (Ofirmev Inj) 1,000 mg in 100 mls @ 250 mls/hr IV X1 ONE Stop: 10/15/24 19:23 Last Admin: 10/15/24 19:50 Dose: Not Given Sodium Chloride (Ns) 1,000 mls @ 999 mls/hr IV .Q1H1M ONE Stop: 10/15/24 20:00 Last Admin: 10/15/24 20:58 Dose: 999 mls/hr Insulin Human Regular (Insulin Hum Regular 1 Unit/0.01 Ml (Per Unit)) 5 unit IV X1 ONE Stop: 10/15/24 20:29 Last Admin: 10/15/24 21:11 Dose: 5 unit Ketorolac Tromethamine (Ketorolac Inj 30 Mg/Ml Vial) 12 mg IVP X1 ONE Stop: 10/15/24 19:01 Last Admin: 10/15/24 19:50 Dose: Not Given Ondansetron HCl (Ondansetron Inj 2 Mg/Ml Inj 2 Ml) 4 mg IVP X1 ONE; Protocol Stop: 10/15/24 19:00 Last Admin: 10/15/24 19:57 Dose: 4 mg Pantoprazole Sodium (Pantoprazole Inj 40 Mg Vial) 40 mg IVP X1 ONE Stop: 10/15/24 22:54 Last Admin: 10/16/24 00:13 Dose: 40 mg Assessment & Plan Plan 74-year-old female with past medical history of hypertension, type 2 diabetes, TIA on Plavix, NAFLD, chronic UTI presented to the ED on 10/16 with episode of shortness of breath and fevers at home will be admitted for sepsis secondary to UTI and will be treated with IV antibiotics with workup for acute hypoxic respiratory failure likely secondary to PAH versus mild heart failure. #Sepsis secondary to UTI #History of chronic UTI As noted above in the HPI, patient apparently has multiple visits to PCP for dysuria like symptoms and has been given oral antibiotics Presents to the ED with high-grade fever 101.4 ?F, tachycardia meet sepsis criteria as she has elevated creatinine above baseline, OSVALDO On examination, patient appears frail and acutely ill WBC not elevated at 7.6 but Pro-Brian is elevated at 16.17 Urinalysis is positive for nitrites, leukocyte esterase, pyuria, hematuria and there is rare bacteria noted In the ED, sepsis alert was initiated and the patient was given roughly 2 L of IV fluid resuscitation Plan: Continue IV ceftriaxone 1 g daily Follow-up on urine/blood cultures #OSVALDO Patient has elevation in from baseline creatinine of 0.8 to creatinine of 1.4 Likely secondary to acutely ill status, dehydration versus worsening of diabetic nephropathy Plan: As patient was given bolus IV fluid, will defer maintenance fluids Follow-up with morning labs Avoid nephrotoxic agents Renally dose medications #Acute hypoxic respiratory failure secondary to #Possible heart failure? #Pulmonary arterial hypertension Patient and patient's family denies the patient ever having any cardiac history, but she has been having dyspnea on exertion and requiring oxygen currently Patient does have risk factors including hypertension, diabetes, increased age On examination, patient does not have any crackles on lung auscultation, no JVD, no peripheral edema troponin of less than 0.020, BNP of 99 EKG showed sinus tachycardia with right bundle branch block CT abdomen pelvis showed distended gallbladder, gastritis/duodenitis, moderate renal parenchymal scar formation, distended urinary bladder, CTA of the chest showed no PE but there was signs of pulmonary arterial hypertension and mild heart failure along with thyromegaly with multiple thyroid nodules venous Doppler study was negative for DVT Plan: Ordered echo to assess for level of PAH and heart failure Will avoid IV diuretics at this time as the patient does not seem volume overloaded #Thyroid nodules CTA chest incidental findings Plan: Follow-up with PCP Consider additional workup along with ultrasound of thyroid outpatient #Hypertension Patient appears to be on verapamil 240 mg for hypertension? Patient also appears to be on amlodipine 5 mg daily Plan: Will restart amlodipine at this time Consider restarting verapamil when appropriate #Insulin-dependent type 2 diabetes #Diabetic neuropathy A1c of 9.6 on 10/15 Plan: Sliding scale insulin Carb consistent low diet Continue patient's home gabapentin #History of TIA Patient follows up with Dr. Gandhi, neurology Is currently on Plavix Patient's [id number] states that she has been having difficulty swallowing and having coughing episodes when drinking cold fluids Plan: Speech therapy consulted Physical therapy consulted Will continue home medication #NAFLD #Gastritis/duodenitis Plan: gallbladder ultrasound is pending Outpatient follow-up and guidance on diet #Depression? Patient appears to be on fluoxetine 10 mg daily Plan: Restart home medication Health Maintenance: Lines: PIV Diet: Carb consistent low, dysphagia II Bowel: Senna as needed GI prophylaxis: IV Protonix DVT prophylaxis: Heparin subcu Dispo: IV antibiotics for UTI sepsis, workup for AHRF secondary to PAH/mild heart failure Code: Full Patient seen and assessed with attending Dr. Delaney Mehta, DO PGY-2 Internal Medicine - [facility] Attending Provider Attestation/Addendum I reviewed labs, imaging, EKG, home medications and prior available records. Face to face evaluation was performed by me. I have personally examined the patient and discussed assessment and plan with the IM team. I reviewed the resident note and agree with the plan with exceptions as below. Sepsis secondary to acute UTI OSVALDO Possible pulmonary hypertension Type 2 diabetes mellitus with hyperglycemia Started IV ceftriaxone She received IV fluids in the ED Avoid excessive IV hydration in the setting of potential pulmonary hypertension Ordered echocardiogram Start insulin therapy and monitor fingerstick Monitor kidney function. Avoid nephrotoxins. Renally dosed medications
--- NOTE | 2024-10-16 02:11 | PRELIM_ITS ---
Gallbladder ultrasound with limited Doppler. October 16, 2024 at 0037 hours Clinical history: Right upper quadrant tenderness. No prior study is available for comparison. Findings: The liver measures 14.3 cm in length and is normal in echogenicity. No intrahepatic biliary ductal dilatation. The main portal vein is patent and demonstrates hepatopetal flow. The gallbladder is distended, measuring 9 x 2.7x 4.8 cm. No gallbladder calculus, wall thickening or pericholecystic fluid is demonstrated. The common bile duct is normal in caliber at 5.3 mm. No evidence of common bile duct calculus. The pancreas is obscured by bowel gas and is not evaluated on this examination. The inferior vena cava to the extent visualized is within normal limits. Impression: Distended gallbladder. No evidence of cholelithiasis, wall thickening, pericholecystic fluid or biliary dilatation. Report Electronically Signed By: Jl Hollingsworth 10/16/2024 2:10:56 AM [EST]
--- NOTE | 2024-10-16 03:55 | PC.NURSE ---
Report called to unit floor, report received by SLICK Lara
[2024-10-16 06:30] LABS: Basophils # (Auto) 0.1 Thou/mm3 (0.0-0.2); Basophils % (Auto) 1 % (0-2.5); Eosinophils # (Auto) 0.1 Thou/mm3 (0.0-0.5); Eosinophils % (Auto) 2 % (0-10); Hematocrit 37.9 % (36.0-46.0); Hemoglobin 13.1 g/dL (12.0-16.0); Immature Granulocytes Auto 0.03 Thou/mm3 (0.00-0.00); Lymphocytes # (Auto) 1.2 Thou/mm3 (1.0-4.8); Lymphocytes % (Auto) 18 % (10-50); Mean Corpuscular HGB Conc 34.6 g/dl (31.0-37.0); Mean Corpuscular Hemoglobin 28.1 pg (25.0-35.0); Mean Corpuscular Volume 81 fL (80-100); Monocytes # (Auto) 0.8 Thou/mm3 (0.0-0.8); Monocytes % (Auto) 11 % (0-12); Neutrophils # (Auto) 4.6 Thou/mm3 (1.8-7.7); Neutrophils % (Auto) 68 % (37-80); Nucleated Red Blood Cell # 0.00 Thou/mm3 (0.00-0.00); Nucleated Red Blood Cell % 0 /100 WBC (0); Platelet Count 106 Thou/mm3 (140-440); RDW Standard Deviation 37.0 fL (36.4-46.3); Red Blood Count 4.66 Miln/mm3 (4.00-5.20); White Blood Count 6.8 Thou/mm3 (3.6-11.0)
[2024-10-16 07:02] LABS: Alanine Aminotransferase 45 U/L (10-49); Albumin, Serum 3.4 gm/dL (3.4-4.8); Albumin/Globulin Ratio 1.4 (1.2-2.2); Alkaline Phosphatase 78 U/L (46-116); Anion Gap 8 (7-16); Aspartate Amino Transferase 29 U/L (0-34); BUN/Creatinine Ratio 17 Ratio (12-20); Bilirubin,Total 0.6 mg/dL (0.3-1.2); Blood Urea Nitrogen 19 mg/dL (9-23); Calcium 7.9 mg/dL (8.3-10.6); Calcium (Corrected) 8.4 mg/dL (8.5-10.1); Carbon Dioxide 22.8 mMol/L (20.0-31.0); Cardiac Risk Estimate 3.4 RATIO (3.7-5.6); Chloride 113 mMol/L (98-107); Cholesterol 108 mg/dL (132-200); Creatinine (Component) 1.1 mg/dL (0.6-1.3); Estimated Creatinine Clearance 31.7 mL/min (>60); Globulin 2.4 gm/dL (2.3-3.5); Glucose 126 mg/dL (74-106); HDL Cholesterol 32 mg/dL (40-60); LDL Cholesterol,Calculated 59 mg/dL (0-130); Osmolality,Calculated 291 (275-295); Potassium 4.0 mMol/L (3.4-5.1); Sodium 144 mMol/L (136-145); Total Protein 5.8 gm/dL (5.7-8.2); Triglycerides 87 mg/dL (30-150); eGFR 52 See Note
--- NOTE | 2024-10-16 08:46 | PC.SS ---
Follow up note: Pt has OSVALDO. Pt is on IV antibiotic.
[2024-10-16] MEDS: GABAPENTIN 100 MG CAPSULE PO ×2 (09:27→21:11)
[2024-10-16] MEDS: CLOPIDOGREL BISULFATE 75 MG TABLET PO (09:27)
[2024-10-16] MEDS: HEPARIN SOD INJ 5000 UNIT/ML VIAL SC ×2 (09:28→21:14)
[2024-10-16] MEDS: cefTRIAXone/D5w 2gm 2 GM/50 ML BAG IV (11:49)
[2024-10-16] MEDS: INSULIN LISPRO (AdmeLOG) 1 UNIT/0.01 ML UNIT SC ×2 (11:53→21:13)
--- NOTE | 2024-10-16 12:53 | PC.SS ---
SS met with patient and spoke to sonJoseph (by phone) regarding patient's d/c plan. Pt is alert/oriented. Pt was admitted for Sepsis, UTI. Pt confirmed demographic and contact information is correct on facesheet. Pt resides with. Pt ambulates independently without assistance or DME. Pt has a cane. Pt is ok with all ADLs. Pt named her son, Jasvir Luna medical decision maker if he is unable. SS provided son with verbal choices for d/c to home or SNF. Son's choice is to return home upon d/c. Patient's sonJasvir helps care for pt at home. Son will provide transportation upon dc. D/C plan: Return home Next of Kin: Jasvir Luna, son, phone# [phone] PCP: Dr. Solano from [facility] Address: Correct on facesheet
--- NOTE | 2024-10-16 13:20 | ESPR_ITS ---
<Statement entered by Rosaline Bey MD - 10/27/24 07:44> I reviewed above note and agree with findings and plans. I have also personally examined the patient with medicine team and went over assessment and plan with medical team including manufacturing engineering intern and resident physician. Documentation for date of: 10/16/24 No overnight events. Patient examined at bedside. Family members at bedside interpreted for patient. Per family members, patient is alert and orientated X 3 and at baseline. Blood culture-->positive for GNR +, ceftriaxone increased from 1 g to 2 g. No chills and no pyrexia noted. Pending final results. [place] echo. Subjective Subjective Interval history: Patient seen and examined at bedside this AM. Reports improved breathing, denies chest pain. Labs and vitals were reviewed. Patient was saturating well on room air, afebrile. Urine culture and blood culture positive for GNR bacteria. CTA showed possible pulmonary hypertension pattern. Pending echo. BUN and creatinine now both improved, now within normal limits. Per [id number], patient completed Plavix course for TIA, only on aspirin now. Review of systems otherwise negative except what is mentioned above. Exam Vital Signs Temp Pulse Resp BP Pulse Ox O2 Del Method O2 Flow Rate 97.1 F 88 17 141/78 H 97 Room Air 2 10/16/24 11:36 10/16/24 11:36 10/16/24 11:36 10/16/24 11:36 10/16/24 11:36 10/16/24 07:29 10/16/24 03:30 Narrative Exam Physical Exam General: Awake and in no acute distress. Speaks Hmong, conversational and non- toxic appearing. HEENT: Normocephalic, atraumatic, mucous membranes moist. Heart: Regular rate and rhythm, normal S1 and S2, no murmurs. Lungs: Clear to auscultation with no wheezing or crackles. Abdomen: Soft, nondistended, nontender, positive bowel sounds. No guarding or rebound tenderness. Neurologic: Alert and oriented x3, no gross neurological deficit, and patient able to move all 4 extremities. Extremities: No edema. Skin: No rash or ecchymoses. Objective Labs 10/17/24 04:38 10/17/24 04:38 Labs: Laboratory Results - last 24 hr 10/15/24 10/15/24 10/15/24 19:40 19:48 19:57 WBC 7.6 RBC 5.50 H Hgb 15.3 Hct 43.0 MCV 78 L MCH 27.8 MCHC 35.6 RDW Std Deviation 35.9 L Plt Count 119 L Neut % (Auto) 87 H Lymph % (Auto) 4 L [place] % (Auto) 7 Eos % (Auto) 1 Baso % (Auto) 0 Neut # (Auto) 6.7 Lymph # (Auto) 0.3 L [place] # (Auto) 0.5 Eos # (Auto) 0.1 Baso # (Auto) 0.0 Immature Gran # (Auto) 0.03 H Absolute Nucleated RBC 0.00 Immature Gran % 0 Nucleated RBC % 0 ESR 32 H PT 11.9 INR 1.1 APTT 32.4 D-Dimer 2770 H Puncture Site Arterial Line ABG pH 7.47 H ABG pCO2 35 ABG pO2 64 L ABG HCO3 25 ABG O2 Saturation 94 ABG Base Excess 2 FiO2 21 Sodium 138 Potassium 4.6 Chloride 104 Carbon Dioxide 23.0 Anion Gap 11 BUN 24 H Creatinine 1.4 H Estim Creat Clear Calc 24.9 L eGFR 39 L BUN/Creatinine Ratio [address]ucose [address] Glu mg/dL 229 H Hemoglobin A1c 9.6 H Calculated Osmolality 294 Lactic Acid 1.9 Calcium 8.6 Corrected Calcium 8.6 Magnesium 1.8 Total Bilirubin 1.0 Direct Bilirubin 0.3 AST 41 H ALT 60 H Alkaline Phosphatase 118 H Troponin I < 0.020 C-Reactive Prot, Quant 15.0 H B-Natriuretic Peptide 99 Total Protein 6.8 Albumin 4.1 Globulin 2.7 Albumin/Globulin Ratio 1.5 Triglycerides Cholesterol LDL Cholesterol, Calc HDL Cholesterol Cholesterol/HDL Ratio Amylase 69 Lipase 37 Beta-Hydroxybutyrate/Acetoacetate 0.2 Procalcitonin 16.17 H TSH 0.52 L Free T4 1.32 Ur Collection Type Clean Catch Urine Color Lt-Yellow Urine Clarity Clear Urine pH 7.0 Ur Specific [place] 1.033 Urine Protein Negative Urine Glucose (UA) 4+ A Urine Ketones Trace Urine Blood Negative Urine Nitrite Positive Urine Bilirubin Negative Urine Urobilinogen (Auto) Negative Ur Leukocyte Esterase Positive Urine RBC 4 H Urine WBC 46 H Ur Squamous Epith Cells 4 Urine Bacteria Rare Ur Culture Indicated? Yes 10/16/24 05:20 WBC 6.8 RBC 4.66 Hgb 13.1 D Hct 37.9 MCV 81 MCH 28.1 MCHC 34.6 RDW Std Deviation 37.0 Plt Count 106 L Neut % (Auto) 68 Lymph % (Auto) 18 [place] % (Auto) 11 Eos % (Auto) 2 Baso % (Auto) 1 Neut # (Auto) 4.6 Lymph # (Auto) 1.2 [place] # (Auto) 0.8 Eos # (Auto) 0.1 Baso # (Auto) 0.1 Immature Gran # (Auto) 0.03 H Absolute Nucleated RBC 0.00 Immature Gran % 0 Nucleated RBC % 0 ESR PT INR APTT D-Dimer Puncture Site ABG pH ABG pCO2 ABG pO2 ABG HCO3 ABG O2 Saturation ABG Base Excess FiO2 Sodium 144 Potassium 4.0 D Chloride 113 H Carbon Dioxide 22.8 Anion Gap 8 BUN 19 Creatinine 1.1 Estim Creat Clear Calc 31.7 L eGFR 52 L BUN/Creatinine Ratio 17 Glucose [address] Glu mg/dL Hemoglobin A1c Calculated Osmolality 291 Lactic Acid Calcium 7.9 L Corrected Calcium 8.4 L Magnesium Total Bilirubin 0.6 Direct Bilirubin AST 29 ALT 45 Alkaline Phosphatase 78 D Troponin I C-Reactive Prot, Quant B-Natriuretic Peptide Total Protein 5.8 Albumin 3.4 D Globulin 2.4 Albumin/Globulin Ratio 1.4 Triglycerides 87 Cholesterol 108 L LDL Cholesterol, Calc 59 HDL Cholesterol 32 L Cholesterol/HDL Ratio 3.4 L Amylase Lipase Beta-Hydroxybutyrate/Acetoacetate Procalcitonin TSH Free T4 Ur Collection Type Urine Color Urine Clarity Urine pH Ur Specific [place] Urine Protein Urine Glucose (UA) Urine Ketones Urine Blood Urine Nitrite Urine Bilirubin Urine Urobilinogen (Auto) Ur Leukocyte Esterase Urine RBC Urine WBC Ur Squamous Epith Cells Urine Bacteria Ur Culture Indicated? ABG Interpretation ABG results: 10/15/24 19:57 ABG pH 7.47 H ABG pCO2 35 ABG pO2 64 L ABG HCO3 25 ABG O2 Saturation 94 ABG Base Excess 2 Quality Measures Quality Measures sepsis Current suspected stage: sepsis Possible source: genitourinary Blood cultures ordered: yes Antibiotic ordered: Yes Advance care planning discussed with:: patient Assessment & Plan Assessment Current Active Medications: Generic Name Dose Route Start Last Admin Trade Name Freq PRN Reason Stop Dose Admin Acetaminophen 650 mg 10/16/24 01:27 Acetaminophen 325 Mg Tablet PO 11/15/24 01:26 Q6H PRN PAIN SCALE 1-3 (mild Amlodipine Besylate 5 mg 10/16/24 09:00 10/16/24 09:28 Amlodipine Besylate 5 Mg Tablet PO 11/15/24 08:59 5 mg QDAY LAUREANO Administration Aspirin 81 mg 10/17/24 09:00 Aspirin Ec 81 Mg Tabec PO 11/16/24 08:59 QDAY LAUREANO Dextrose 25 ml 10/16/24 01:32 Dextrose 50%-Water Inj 50 Ml Syringe IV 11/15/24 01:31 Q15MIN PRN BG 50-70 responsive npo pt Dextrose 50 ml 10/16/24 01:32 Dextrose 50%-Water Inj 50 Ml Syringe IV 11/15/24 01:31 Q15MIN PRN BG <50 OR BG <70 & pt unresponsive Fluoxetine HCl 10 mg 10/16/24 09:00 10/16/24 09:27 Fluoxetine Hcl 10 Mg Capsule PO 11/15/24 08:59 10 mg QDAY LAUREANO Administration Gabapentin 100 mg 10/16/24 09:00 10/16/24 09:27 Gabapentin 100 Mg Capsule PO 11/15/24 08:59 100 mg BID LAUREANO Administration Glucagon 1 mg 10/16/24 01:32 Glucagon Inj 1 Mg Vial IM Q15MIN PRN BG <70, and no IV access Heparin Sodium (Porcine) 5,000 unit 10/16/24 09:00 10/16/24 09:28 Heparin Sod Inj 5000 Unit/Ml Vial SC 10/30/24 08:59 5,000 unit Q12HR LAUREANO Administration Ceftriaxone Sodium/Dextrose 2 gm in 50 mls @ 100 mls/hr 10/16/24 11:12 10/16/24 11:49 Rocephin/D5w 2gm IV 10/23/24 11:11 100 mls/hr QDAY LAUREANO Administration Insulin Human Lispro 0 unit 10/16/24 07:30 10/16/24 11:53 Insulin Lispro (Admelog) 1 Unit/0.01 Ml Unit SC 11/15/24 07:29 1 unit ACHS LAUREANO Administration Protocol Ondansetron HCl 4 mg 10/16/24 01:27 Ondansetron Inj 2 Mg/Ml Inj 2 Ml IVP 11/15/24 01:26 Q6H PRN NAUSEA OR VOMITING Protocol Pantoprazole Sodium 40 mg 10/16/24 09:00 10/16/24 09:28 Pantoprazole Inj 40 Mg Vial IVP 11/15/24 08:59 40 mg QDAY LAUREANO Administration Sennosides 1 tab 10/16/24 01:27 Senna Tablet PO 11/15/24 01:26 QDAY PRN constipation Protocol Plan 74-year-old female with past medical history of hypertension, type 2 diabetes, TIA on ASA, NAFLD, chronic UTI presented to the ED on 10/16 with episode of shortness of breath and fevers at home, will be admitted for sepsis secondary to UTI and workup for acute hypoxic respiratory failure likely secondary to PAH versus mild heart failure. #Sepsis secondary to GNR UTI #GNR bacteremia #History of chronic UTIs Patient has been treated multiple times for UTIs in outpatient setting. On admission, temperature 101.4 ?F, tachycardic, elevated creatinine, met sepsis criteria. WBC not elevated at 7.6 but Pro-Brian is elevated at 16.17. CXR unremarkable. UA 10/15 is positive for nitrites, leukocyte esterase, pyuria, hematuria, and rare bacteria noted. Status post 2 L of IV fluid resuscitation in the ED. Blood culture 10/15 preliminary results shows gram-negative bacteria. Pending sensitivities Plan: - Increase to IV ceftriaxone 2g daily - Pending final urine and blood cultures, pending sensitivities #OSVALDO?resolved Patient has elevation in from baseline creatinine of 0.8 to creatinine of 1.4 Likely secondary to sepsis versus dehydration Plan: ?Status post IVF bolus ?Continue to monitor renal panel #Acute hypoxic respiratory failure secondary to #Possible heart failure? #Pulmonary arterial hypertension No cardiac history however patient endorses dyspnea on exertion and orthopnea. Patient has risk factors including hypertension, diabetes, increased age. On examination, patient does not have any crackles on lung auscultation, no JVD, no peripheral edema. On admission, troponin of less than 0.020, BNP of 99. EKG showed sinus tachycardia with right bundle branch block. CTA chest 10/15 shows signs of pulmonary arterial hypertension and mild heart failure, negative for PE. Venous Doppler 10/15 negative for DVT. Plan: ?Supplemental oxygen as needed ?Pending echo ?Will hold on IV diuretics #Subclinical hyperthyroidism #Thyromegaly #Thyroid nodules CTA chest incidental findings. TSH low at 0.52, however free T41.32 (within normal limits). Plan: ?Follow-up with PCP ?Consider additional workup along with ultrasound of thyroid outpatient #Hypertension Home medications include verapamil 240 mg and amlodipine 5 mg daily. Pending med rec. Plan: ?Continue home dose amlodipine ?Hold home dose verapamil, resume when appropriate #Insulin-dependent type 2 diabetes #Diabetic neuropathy A1c of 9.6 on 10/15. Plan: ?Sliding scale insulin ?Carb consistent low diet ?Continue home dose gabapentin #History of TIA Patient follows up with Dr. Gandhi, neurology. Per daughter in law, completed Plavix course, only on aspirin now. Patient's [id number] states that she has been having difficulty swallowing and having coughing episodes when drinking cold fluids. Plan: ?Continue ASA 81 mg ?Physical therapy consulted, recommend home health PT and FWW and FWW on discharge ? On dysphagia diet 3 per speech therapy recommendations #NAFLD #Gastritis/duodenitis CTA A/P incidental findings. Gallbladder ultrasound negative for cholecystitis or cholelithiasis. Plan: - Started on IV Protonix - Outpatient follow-up and guidance on diet #Depression? Takes fluoxetine 10 mg daily at home, pending med rec. Plan: - Continue home dose fluoxetine Health Maintenance: Lines: PIV Diet: Low carb consistent diet, Dysphagia diet III Bowel: Senna as needed GI prophylaxis: IV Protonix DVT prophylaxis: Heparin subcu Dispo: IV antibiotics for UTI sepsis, workup for AHRF secondary to PAH/mild heart failure Code: Full Patient plan of care was discussed with the resident, Dr. Hale, and attending physician, Dr. Bey. Angelique Schulz, PGY-1
[2024-10-16] MEDS: IBUPROFEN TAB 400 MG TABLET PO (14:06)
--- NOTE | 2024-10-16 17:50 | PC.PT ---
Patient is safe to ambulate to the bathroom and a short distance into the halls with a FWW and 1 staff assist. RN made aware.
[2024-10-17] VITALS (7 sets, daily range): BP systolic 128–147; BP diastolic 77–88; PULSE 83–94; RESP 18–25; TEMP 36.2–37.2; O2SAT 95–97
[2024-10-17 05:54] LABS: Basophils # (Auto) 0.0 Thou/mm3 (0.0-0.2); Basophils % (Auto) 0 % (0-2.5); Eosinophils # (Auto) 0.2 Thou/mm3 (0.0-0.5); Eosinophils % (Auto) 4 % (0-10); Hematocrit 39.6 % (36.0-46.0); Hemoglobin 13.5 g/dL (12.0-16.0); Immature Granulocytes Auto 0.01 Thou/mm3 (0.00-0.00); Lymphocytes # (Auto) 1.2 Thou/mm3 (1.0-4.8); Lymphocytes % (Auto) 24 % (10-50); Mean Corpuscular HGB Conc 34.1 g/dl (31.0-37.0); Mean Corpuscular Hemoglobin 27.6 pg (25.0-35.0); Mean Corpuscular Volume 81 fL (80-100); Monocytes # (Auto) 0.8 Thou/mm3 (0.0-0.8); Monocytes % (Auto) 15 % (0-12); Neutrophils # (Auto) 2.9 Thou/mm3 (1.8-7.7); Neutrophils % (Auto) 57 % (37-80); Nucleated Red Blood Cell # 0.00 Thou/mm3 (0.00-0.00); Nucleated Red Blood Cell % 0 /100 WBC (0); Platelet Count 102 Thou/mm3 (140-440); RDW Standard Deviation 36.0 fL (36.4-46.3); Red Blood Count 4.89 Miln/mm3 (4.00-5.20); White Blood Count 5.1 Thou/mm3 (3.6-11.0)
[2024-10-17 06:28] LABS: Alanine Aminotransferase 36 U/L (10-49); Albumin, Serum 3.6 gm/dL (3.4-4.8); Albumin/Globulin Ratio 1.4 (1.2-2.2); Alkaline Phosphatase 100 U/L (46-116); Anion Gap 13 (7-16); Aspartate Amino Transferase 24 U/L (0-34); BUN/Creatinine Ratio 15 Ratio (12-20); Bilirubin,Total 0.4 mg/dL (0.3-1.2); Blood Urea Nitrogen 16 mg/dL (9-23); Calcium 8.6 mg/dL (8.3-10.6); Calcium (Corrected) 8.9 mg/dL (8.5-10.1); Carbon Dioxide 22.3 mMol/L (20.0-31.0); Chloride 106 mMol/L (98-107); Creatinine (Component) 1.1 mg/dL (0.6-1.3); Estimated Creatinine Clearance 35.1 mL/min (>60); Globulin 2.5 gm/dL (2.3-3.5); Glucose 168 mg/dL (74-106); Magnesium 1.4 mg/dL (1.6-2.6); Osmolality,Calculated 286 (275-295); Phosphorous 2.6 mg/dL (2.4-5.1); Potassium 3.9 mMol/L (3.4-5.1); Sodium 141 mMol/L (136-145); Total Protein 6.1 gm/dL (5.7-8.2); eGFR 52 See Note
[2024-10-17] MEDS: cefTRIAXone/D5w 2gm 2 GM/50 ML BAG IV (08:31)
[2024-10-17] MEDS: ASPIRIN EC 81 MG TABEC PO (08:31)
[2024-10-17] MEDS: GABAPENTIN 100 MG CAPSULE PO (08:31)
[2024-10-17] MEDS: INSULIN LISPRO (AdmeLOG) 1 UNIT/0.01 ML UNIT SC ×2 (08:32→12:23)
[2024-10-17] MEDS: HEPARIN SOD INJ 5000 UNIT/ML VIAL SC (08:33)
--- NOTE | 2024-10-17 15:23 | PC.SS ---
Late entry: SS met with pt and family bedside; pt did not trust Telugu so SS spoke with son who translated going over medicare; pt alert and oriented x4
--- NOTE | 2024-10-17 16:08 | ESDS_ITS ---
<Statement entered by Rosaline Bey MD - 10/27/24 07:45> I reviewed above note and agree with findings and plans. I have also personally examined the patient with medicine team and went over assessment and plan with medical team including international sales manager and resident physician. Planned Discharge Date 10/17/24 DS: Providers Provider Date of admission: 10/16/24 01:27 Primary care physician: Physician No Primary/Family Admitting Provider: Adam Baltazar MD Attending Provider on Admission: Rosaline Bey MD Consults: 10/16/24 01:31 Referral Speech Therapy Routine Comment: Patient has choking with cold fluids 10/16/24 09:00 Referral Physical Therapy Routine Comment: Physician Instructions: Attending Provider on DC: Sandrine Hale MD Discharging Provider: Sandrine Hale MD DS: Diagnosis Problem List Completed Was Problem List Reviewed/Reconciled?: Yes Hospital Course Hospital Course Hospital course: Summary Patient is a 74 year old female with a past medical history of hypertension, diabetes mellitus type 2 insulin depedent, history of NAFLD, hsitory of recurrent UTIs. Patient present with chief complain with fevers and shortness of breath. Patient was admited for sepsis secondary to UTI, E.coli with bacteremia. ER Course: Vitals 134/77, HR 115, RR 24, T 101.4 spo2 93% WBC 7.6 hgb 15.3, Platelet Count 119, D-Dimer 2270 ABG 7.47, pCO2 64, bicarb 25, BUN 24, Creatinine 1.4 GFR 39 A1c 9.6 lacitc aci of 1.9 Troponin <0.02, EKG sinus tachycarida w/ right bundle branch block CTA negative PE,multiple thyroid nodules Hospital Course: IV antibiotics were continued upon hospitilization with 1 gram of IV Ceftriaxone and subsequently escelated to 2 grams IV given positive blood cultures. Positive blood cultures noted with preliminary read noted to be GNR +. Patient continued antibiotics. Patient discharged on oral antibiotics given bacteremia, additional 10 days. Care Plan Goals: Instructions: -Augmentin 500 mg-125 mg twice a day for blood stream infection -Continue all medication as prescribed -Please follow up with your primary care provider within one week of discharge -If your symptoms worsen,please seek immediate medical attention and return to your nearest emergency room -If you do not have a primary care provider, you may follow up at the [facility] at [address], [place] [address], #GNR Bacteremia #Sepsis secondary to GNR UTI #history of chornic UTIs #OSVALDO, resolved. #Insulin-dependent type 2 diabetes #Diabetic neuropathy #Hypertension #History of TIA #Thyromegaly #Thyroid nodule -Follow up outpatient - The patient's plan was discussed with attending Dr. Sotero Hale MD PGY2 Internal Medicine Time Spent with Patient Time attestation: Total time spent providing and/or coordinating discharge services: at least thirty minutes of care and coordination Time spent: Greater than 30 minutes Exam Vital Signs Temp Pulse Resp BP Pulse Ox O2 Del Method O2 Flow Rate 97.2 F 94 18 128/85 H 96 Room Air 2 10/17/24 12:00 10/17/24 12:00 10/17/24 12:00 10/17/24 12:00 10/17/24 12:00 10/17/24 12:00 10/17/24 08:00 Narrative Exam General Appearance: Alert & Oriented X3, well-nourished female who is lying in bed in no acute distress HEENT: Skull symmetrical and atraumatic. Conjunctivae pink and moist. Pupils equal, round, reactive to light and accommodation (PERRL). External ear without lesion or discharge. Straight, nares patient, mucosa pink, no discharge. Cardio: Normal Rate and Rhythm with S1 and S2 heart sounds. No murmurs or extra heart sounds auscultated. No bruits on carotid auscultation. No peripheral edema or cyanosis. Lungs: Symmetric with good expansion. Chest and back non-tender. Breath sounds vesicular without crackles, wheezing or rhonchi Abdomen: Non-tender, Non-distended, Normal Reactive Bowel Sounds Neuro: Alert, cooperative, oriented to person, place, and time. Speech clear. CN grossly intact. Upper motor strength 5/5 and Lower motor strength 5/5. Sensation intact. Discharge Plan Plan Patient Disposition: HOME (Self Care) Patient condition on transfer: Stable Care Plan Goals: Instructions: -Augmentin 500 mg-125 mg twice a day for blood stream infection -Continue all medication as prescribed -Please follow up with your primary care provider within one week of discharge -If your symptoms worsen,please seek immediate medical attention and return to your nearest emergency room -If you do not have a primary care provider, you may follow up at the [facility] at [address], [place] [address], Prescriptions/Referrals Prescriptions/Med Rec: New amoxicillin-pot clavulanate [Augmentin] 500-125 mg tablet 1 tab PO BID 10 Days Qty: 20 0RF Continued glipizide 10 mg tablet 10 mg PO ACBR verapamil 240 mg Tablet Extended Release 240 mg PO QDAY Januvia 100 mg Tablet 100 mg PO QDAY Jardiance 25 mg tablet 25 mg PO DAILY Patient Comments: TAKE ONE TABLET BY MOUTH EVERY DAY FOR DIABETES aspirin 81 mg tablet,delayed release (DR/EC) 81 mg PO QDAY Qty: 60 1RF docusate sodium 250 mg capsule 250 mg PO QDAY amlodipine 5 mg tablet 5 mg PO QDAY Patient Comments: TAKE ONE TABLET BY MOUTH EVERY DAY HIGH BLOOD PRESSURE fluoxetine 10 mg capsule 10 mg PO QDAY gabapentin 100 mg capsule 100 mg PO BID Patient Comments: TAKE ONE CAPSULE BY MOUTH TWICE DAILY FOR NERVE PAIN insulin degludec 100 unit/mL (3 mL) insulin pen 10 unit SUBCUT QDAY Patient Comments: INJECT 12 UNITS SUBCUTANEOUSLY EVERY DAY Referrals: No Primary/Family,Physician [Primary Care Provider] - Patient/Caregiver Discharge Instructions Education Materials: ED Bacteremia, Suspected (Adult) Print Language: Hmong Stand Alone Forms: Brandi Award Info., Patient Portal Info Letter Discharge Order Discharge Orders: Discharge (Routine); Ordered 10/17/24 Ordered By: Rosaline Bey Quality Discharge Quality Measures VTE prophylaxis
== END 2024-10-17 15:44 | disposition home or self-care (01) | DRG 871 ==
LOC: SERX 10-16 01:35 → SERHOLD 10-16 01:46 → S3NX 10-16 04:07
PROVIDERS: Admitting Provider Student in an Organized Health Care Education/Training Program; Emergency Provider Emergency Medicine; Visit Provider Internal Medicine
DX: A41.51 Sepsis due to Escherichia coli [E. coli] (principal); J96.01 Acute respiratory failure with hypoxia; N39.0 Urinary tract infection, site not specified; N17.9 Acute kidney failure, unspecified; Z79.4 Long term (current) use of insulin; E11.40 Type 2 diabetes mellitus with diabetic neuropathy, unspecified; K76.0 Fatty (change of) liver, not elsewhere classified; I27.21 Secondary pulmonary arterial hypertension; I11.0 Hypertensive heart disease with heart failure; E04.2 Nontoxic multinodular goiter; K29.80 Duodenitis without bleeding; K29.70 Gastritis, unspecified, without bleeding; F32.A Depression, unspecified; I50.9 Heart failure, unspecified; Z86.73 Personal history of transient ischemic attack (TIA), and cerebral infarction without residual deficits; Z87.440 Personal history of urinary (tract) infections; K82.8 Other specified diseases of gallbladder; E05.20 Thyrotoxicosis with toxic multinodular goiter without thyrotoxic crisis or storm; E11.65 Type 2 diabetes mellitus with hyperglycemia; I45.10 Unspecified right bundle-branch block; Z74.01 Bed confinement status; Z79.82 Long term (current) use of aspirin; Z79.899 Other long term (current) drug therapy
CPT/HCPCS: 36415; 36600; 70450; 71045; 71275; 74177; 76705; 80053; 80061; 81001; 82010; 82150; 82248; 82803; 83036; 83605; 83690; 83735; 83880; 84100; 84145; 84439; 84443; 84484; 85025; 85379; 85610; 85652; 85730; 86140; 87040; 87077; 87086; 87186; 87400; 87811; 92610; 93005; 93225; 93306; 93970; 94762; 96361; 96365; 96375; 96376; 97162; A4649; J0696; J1644; J1815; J2405; J2470; J3490; J7030; Q9967; A9270